=== PATIENT | female | born 1930 | race Asian ===

== ENCOUNTER 2017-03-14 07:18 | Inpatient (IN) | payer OTHER ==
--- NOTE | 2017-03-14 07:25 | PDOC ---
History of Present Illness - General History Source: Family Exam Limitations: Clinical Condition, Dementia, Unresponsive - History of Present Illness Initial Comments: 03/14/17 07:27 The patient is an 87-year-old woman, from home, accompanied by her family, with a significant past medical history of hypertension, hypercholesterolemia, diabetes mellitus, atrial fibrillation(on Eliquis), coronary artery disease, congestive heart failure, acute hepatic encephalopathy (09/2016) and dementia who presents to the emergency department via EMS for further evaluation altered mental status. As per family, at baseline, the patient is verbal, ambulatory and can perform her daily activities but is forgetful as she sometimes forgets where items in the cabinets are. Family states that this morning, approximately one hour prior to ED arrival, they noted that the patient was mumbling and non verbal with her eyes to be noted to deviate to the left. Family attempted to wake the patient up but were unsuccessful. EMS was activated. Code zelaya was activated at 07:28 AM. No recent head injury, as per family. Allergies: No Known Drug Allergies Past Surgical History: None reported Social History: No tobacco, EtOH and recreational drug use. Primary Care Physician: Dr. Charly Barfield [phone] <Katarzyna Montero - Last Filed: 03/14/17 10:20> - General History Source: Family Exam Limitations: No Limitations <Maddy Torrez - Last Filed: 03/15/17 23:05> - General Chief Complaint: Altered Mental Status Stated Complaint: ALTERED MENTAL STATUS Time Seen by Provider: 03/14/17 07:25 Past History <Katarzyna Montero - Last Filed: 03/14/17 10:20> - Past Medical History Cardiac Disorders: Yes (heart failure) - Psycho/Social/Smoking Cessation Hx Anxiety: No Suicidal Ideation: No Smoking History: Never smoked Have you smoked in the past 12 months: No Hx Alcohol Use: No Drug/Substance Use Hx: No Substance Use Type: None <Madyd Torrez - Last Filed: 03/15/17 23:05> - Past Medical History Allergies/Adverse Reactions: Allergies Allergy/AdvReac Type Severity Reaction Status Date / Time No Known Allergies Allergy Verified 09/15/16 19:05 Home Medications: Ambulatory Orders Spironolactone [Aldactone -] 25 mg PO DAILY 09/15/16 Apixaban [Eliquis -] 2.5 mg PO BID #20 tablet 09/23/16 Lactulose (Oral Use) [Cephulac -] 20 gm PO DAILY #7 udc 09/23/16 Lisinopril [Prinivil] 10 mg PO DAILY #30 tablet 09/23/16 Metoprolol Tartrate [Lopressor -] 100 mg PO BID #20 tablet 09/23/16 Miscellaneous Medical Supply [Outpatient Order] 1 each ASDIR #1 misc Nystatin Oral Suspension - [Nystatin Oral Susp 749417 Units/5 ML -] 500,000 units PO DAILY #7 cup 09/23/16 Pantoprazole Sodium [Protonix -] 20 mg PO DAILY #10 tablet.ec 09/23/16 Review of Systems - Review of Systems Able to Perform ROS?: No <Katarzyna Montero - Last Filed: 03/14/17 10:20> *Physical Exam - Physical Exam Comments: 03/14/17 07:28 GENERAL: Moving extremities in response to pain and spontaneously. No verbal response. HEAD: Normal with no signs of trauma. EYES: Gazed deviated to the left. Sclera anicteric, conjunctiva clear. ENT: Ears normal, nares patent, oropharynx clear without exudates. Moist mucous membranes. NECK: Normal range of motion, supple without lymphadenopathy, JVD, or masses. LUNGS: Breath sounds equal, clear to auscultation bilaterally. No wheezes, and no crackles. HEART: Irregularly, irregular rate and rhythm, without murmur, rub or gallop. ABDOMEN: Soft, nontender, normoactive bowel sounds. No guarding, no rebound. EXTREMITIES: No edema. No clubbing or cyanosis. No erythema, or tenderness. NEUROLOGICAL: Moving extremities in response to pain and spontaneously. No verbal response. MUSCULOSKELETAL: Back nontender to palpation, no CVA tenderness SKIN: Warm, Dry, normal turgor, no rashes or lesions noted. <Katarzyna Montero - Last Filed: 03/14/17 10:20> Heart Score/ECG Review #1 ECG reviewed & interpreted by me at: 07:33 03/14/17 07:34 Afib rate of 96 bpm. [place] nml Intervals nml: QRS:100ms, QTc:477ms No ST elevations or depressions (+) PVC <Maddy Torrez - Last Filed: 03/15/17 23:05> ED Treatment Course - LABORATORY CBC & Chemistry Diagram: 03/14/17 07:36 03/14/17 07:36 - RADIOLOGY Radiograph Interpretation: 03/14/17 09:35 EXAM: CT/HEAD CT (STROKE) CT scan of the brain c- Interpreted by Dr. Ramon Steiner IMPRESSION: Comparison study May 01, 2014. Findings. Serial axial images of the brain were obtained from foramen magnum to the cranial vertex without intravenous contrast. The study was supplemented with computer-generated coronal and sagittal reconstruction images. Bench Chemist image was reviewed. Acute hematoma is observed in the right posterior fossa involving the right cerebellum , vermis The size of acute hematoma approximately 3.1 cm (AP), 6 cm (transverse) x 2.6 cm (craniocaudal). Manjula hematoma edema is observed with mass effect on the brainstem. Effaced fourth ventricle. Low lying cerebellar tonsils. Partially effaced perimesencephalic cisterns, superior cerebellar cistern , concerning for tonsilar herniation, upward herniation (ascending transtentorial herniation). Loss of volume of the supratentorial brain parenchyma. The lateral ventricles, third ventricles are dilated. Widened cortical sulci sylvian fissures. Supratentorial chronic white matter microangiopathic ischemic gliosis. Dilated temporal horns of lateral ventricles associated with loss of the medial temporal lobes, hippocampus - Alzheimer dementia. Examination of the bone windows show no fracture. The visualized paranasal sinuses and mastoid air cells are clear. Symmetrical ocular globes. Unremarkable retro-orbital soft tissues. <Katarzyna Montero - Last Filed: 03/14/17 10:20> - LABORATORY CBC & Chemistry Diagram: 03/14/17 07:36 03/14/17 07:36 <Maddy Torrez - Last Filed: 03/15/17 23:05> Medical Decision Making - Critical Care Time Total Critical Care Time (minutes): 60 Critical Care Statement: The care of this patient involved high complexity decision making to prevent further life threatening deterioration of the patient 's condition and/or to evalute & treat vital organ system(s) failure or risk of failure. - Medical Decision Making 03/14/17 07:28 Code Zelaya activated. 03/14/17 07:[address] 03/14/17 07:50 Received a call from Radiology. 03/14/17 07:50 Calling Neurologist inspector material disposition- Dr. Maier 03/14/17 07:53 Called [facility]. 03/14/17 07:[address] Maier. Case was discussed. 03/14/17 07:57 Spoke to Stroke Attending. Case accepted. ETA 15 minutes 03/14/17 08:27 Call was [address] Barfield 03/14/17 08:[address] Barfield at his mobile phone. No answer. Left voicemail. 03/14/17 08:[address] Hughes. Immediate response. Case was discussed. States to refer the patient to Hospitalist Service. 03/14/17 08:48 MicroBlogged Hospitalist. Immediate response. Case discussed. 03/14/17 10:[address] Barfield. Immediate response. Case discussed. <Katarzyna Montero - Last Filed: 03/14/17 10:20> - Critical Care Time Total Critical Care Time (minutes): 60 Critical Care Statement: The care of this patient involved high complexity decision making to prevent further life threatening deterioration of the patient 's condition and/or to evalute & treat vital organ system(s) failure or risk of failure. - Medical Decision Making 03/14/17 07:25 A portion of this note was documented by scribe services under my direction. I have reviewed the details of the note, within reason, and agree with the documentation with the following case summary and management plan written by me. Nursing documentation reviewed and incorporated into medical decision making 03/14/17 07:35 This pt is an 87 yo F with a h/o HTN, HLD, DM, CAD, CHF, Afib on Eliquis, hepatic encephalopathy (on lactulose) Presenting to the ER with family via EMS due to altered mental status Pt awoke this morning grunting and looking to the left No trauma No fevers No vomiting Pt had no complaints last night 03/14/17 07:45 CT viewed LARGE ICH Will discuss with family Will Intubate 03/14/17 07:59 Case reviewed with Rosa Recommends transfer anyhow for higher level of care Will again review intubation with family given They have thus far stated that they do not want her to live in a coma, they do not want her to suffer 03/14/17 08:01 Call placed to [facility] Case reviewed with Dr. Valentino 03/14/17 08:04 Call placed to Pharmacy We do not have [facility] 03/14/17 08:25 Ct official read in the system: Acute hematoma involving the right cerebellar vermis Manjula hematoma edema Tonsilar herniation Kepra given Nipride drip started 03/14/17 08:26 03/14/17 08:[address] Barfield 03/14/17 08:48 Laboratory Tests 03/14/17 03/14/17 03/14/17 07:36 07:36 07:36 WBC 10.0 Hgb 16.2 H D Hct 49.7 H D Plt Count 183 D Neutrophils % 68.6 Lymphocytes % 21.9 D INR 1.68 H BUN 21 H Creatinine 1.0 Random Glucose 149 H D Creatine Kinase 78 Troponin I < 0.02 Case reviewed with Ellen Harmon recommends hospitalist 03/14/17 09:08 CAlled to see this patient She is bradycardiac, now unresponsive 03/14/17 09:20 Pt asystolic on monitor Dusky mucous membranes No palpable pulses US: no cardiac activity Pronounced at 9:18pm I have spoken with Dr. Walden's PA Unable to reach Dr Barfield 03/14/17 09:25 Call placed to [facility] Voicemail left 03/14/17 10:15 03/14/17 10:17 Case reviewed with Mill Operator Head Katya Case released Release # [id number] 03/14/17 10:22 Dr Barfield aware States he has not seen this patient in 6 months Did not know she was started on Eliquis Dr. Barfield told that he will need to sign certificate 03/14/17 10:23 Dr. Barfield was called by medical records He refuses to sign certificate I will sign <Maddy Torrez - Last Filed: 03/15/17 23:05> *DC/Admit/Observation/Transfer - Attestations Scribe Attestion: 03/14/17 07:28 Documentation prepared by Katarzyna Montero, acting as director of medical review for Maddy Torrez MD. <Katarzyna Montero - Last Filed: 03/14/17 10:20> - Discharge Dispostion Admit: Yes <Maddy Torrez - Last Filed: 03/15/17 23:05> Diagnosis at time of Disposition: Intracranial hemorrhage - Discharge Dispostion Disposition: Condition at time of disposition: Critical - Referrals
[2017-03-14] MEDS ORDERED: LABETALOL HCL 5 MG/1 ML (100MG/20 ML VIAL) IVPUSH ONE ×2 (07:29→07:52)
[2017-03-14] MEDS ORDERED: SODIUM CHLORIDE 1,000 ML IV SCH (07:30)
[2017-03-14 07:33] VITALS: BMI 28.3
[2017-03-14] MEDS ORDERED: LABETALOL HCL 5 MG/1 ML (200MG/40ML VIAL) IVPB ONE (07:45)
[2017-03-14] MEDS ORDERED: RAPID SEQUENCE INTUBATION KIT NR ONE (07:46)
[2017-03-14 07:47] LABS: BASOPHIL 0.9 % (0-2.0); EOSINOPHIL 0.6 % (0-4.5); MCH 30.9 pg (25.7-33.7); MCHC 32.6 g/dl (32.0-36.0); MEAN CELL VOLUME 94.9 fl (80-96); MEAN PLT VOLUME 9.4 fl (7.5-11.1); NEUTROPHILS 68.6 % (42.8-82.8); PLATELET COUNT 183 K/MM3 (134-434); RDW 17.1 % (11.6-15.6)
[2017-03-14 07:55] LABS: INR 1.68 (0.82-1.09); PROTHROMBIN TIME (PATIENT) 18.7 SEC (9.98-11.88)
[2017-03-14 08:00] LABS: URINE APPEARANCE CLEAR; URINE BILIRUBIN NEGATIVE (NEGATIVE); URINE COLOR LTYELLOW; URINE GLUCOSE (UA) NEGATIVE (NEGATIVE); URINE KETONE NEGATIVE (NEGATIVE); URINE LEUK ESTERASE NEGATIVE (NEGATIVE); URINE NITRITE NEGATIVE (NEGATIVE); URINE UROBILINOGEN NEGATIVE E.U./dl (0.2-1.0)
[2017-03-14] MEDS ORDERED: levETIRAcetam 500 MG/5 ML INJECTION VIAL IVPB ONE ×2 (08:00→08:13)
[2017-03-14 08:06] LABS: ALBUMIN 3.8 g/dl (3.4-5.0); ANION GAP 12 (8-16); CALCIUM 9.4 mg/dL (8.5-10.1); CO2 23 mmol/L (21-32); GLUCOSE,RANDOM 149 mg/dL (74-106)
[2017-03-14 08:08] LABS: BILIRUBIN,TOTAL 1.7 mg/dL (0.2-1.0); CHOLESTEROL 131 mg/dL (50-200); COCKROFT - GAULT 46.8265; LDL CHOLESTEROL (ONLY SJRH) 85 mg/dL (5-100); SGPT/ALT 16 U/L (12-78); TOT PROT 7.5 g/dl (6.4-8.2)
[2017-03-14 08:10] LABS: ALK PHOS 145 U/L (45-117); TROPONIN I < 0.02 ng/ml (0.00-0.05)
[2017-03-14] MEDS ORDERED: SODIUM CHLORIDE IVPB SCH (08:15)
[2017-03-14] MEDS ORDERED: NITROPRUSSIDE SODIUM IVPB SCH (08:15)
[2017-03-14 08:17] LABS: URINE BLOOD 1+ (NEGATIVE); URINE PROTEIN 2+ (NEGATIVE)
[2017-03-14 08:31] LABS: SGOT/AST 28 U/L (15-37)
[2017-03-14] MEDS ORDERED: NITROPRUSSIDE SODIUM 25 MG/1 ML ML IVPB ONE (08:33)
[2017-03-14 08:50] LABS: URINE HYALINE CAST 3 /lpf; URINE RBC 2 /hpf (0-3); URINE WBC 1 /hpf (3-5)
[2017-03-14 09:07] VITALS: BP 189/110
--- NOTE | 2017-03-14 09:15 | EKG ---
Test Reason : Blood Pressure : / mmHG Vent. Rate : 096 BPM Atrial Rate : 088 BPM P-R Int : 000 ms QRS Dur : 100 ms QT Int : 378 ms P-R-T Axes : 000 -12 191 degrees QTc Int : 477 ms ATRIAL FIBRILLATION WITH PREMATURE VENTRICULAR OR ABERRANTLY CONDUCTED COMPLEXES NONSPECIFIC ST AND T WAVE ABNORMALITY PROLONGED QT ABNORMAL ECG WHEN COMPARED WITH ECG OF 15-SEP-2016 21:11, NONSPECIFIC T WAVE ABNORMALITY, WORSE IN LATERAL LEADS Confirmed by KATT BRANCH MD ([id number]) on 03/14/2017 9:14:44 AM Referred By: Confirmed By:KATT BRANCH MD
[2017-03-14 09:25] VITALS: PULSE 0
[2017-03-14 10:02] VITALS: TEMP 97
== END 2017-03-14 12:00 | disposition expired | DRG 64 ==
LOC: JER 07:18 → JERBED 08:50
PROVIDERS: ADMIT Internal Medicine; ATTEND Internal Medicine
DX: I62.9 Nontraumatic intracranial hemorrhage, unspecified (principal); G93.6 Cerebral edema; K72.90 Hepatic failure, unspecified without coma; I25.10 Atherosclerotic heart disease of native coronary artery without angina pectoris; I11.0 Hypertensive heart disease with heart failure; I50.9 Heart failure, unspecified; E11.9 Type 2 diabetes mellitus without complications; I48.91 Unspecified atrial fibrillation; Z79.01 Long term (current) use of anticoagulants; G30.9 Alzheimer's disease, unspecified; F02.80 Dementia in other diseases classified elsewhere, unspecified severity, without behavioral disturbance, psychotic disturbance, mood disturbance, and anxiety; R00.1 Bradycardia, unspecified
CPT/HCPCS: 36415; 70450-TC; 80053; 81003; 81015; 82140; 82465; 82550; 83605; 83718; 83721; 84478; 84484; 85025; 85610; 86850; 86900; 86901; 93005; 93010; 99285-25